=== PATIENT | female | born 1995 | race African-American/Black ===

== ENCOUNTER 2019-01-10 16:09 | Emergency (ER) | payer MEDICAID ==
[~2019-01-10] VITALS: Ht 160 cm; Wt 68.2 kg
[2019-01-10 16:20] VITALS: Ht 160 cm; Wt 68.2 kg
[2019-01-10 16:54] LABS: BASOPHILS 0.1 % (0-2); HEMATOCRIT 39.6 % (36.0-48.0); HEMOGLOBIN 14.1 g/dL (12-16); IMMATURE GRANULOCYTES 0.1 % (0-5); LYMPHOCYTES 21.2 % (15-50); MCH 29.3 pg (26.0-34.0); MCHC 35.6 g/dL (31.0-37.0); MCV 82.3 fL (80.0-100.0); MEAN PLATELET VOLUME 11.3 fL (7.4-10.4); MONOCYTES 7.5 % (2-11); NEUTROPHILS 70.1 % (40-80); PLATELET COUNT 169 10x3/uL (130-400); RBC 4.81 10x6/uL (4.00-5.40); RDW 13.3 % (11.5-14.5)
[2019-01-10 16:58] LABS: HCG URINE POSITIVE (NEGATIVE)
[2019-01-10 17:06] LABS: APPEARANCE HAZY (CLEAR); BILIRUBIN NEGATIVE (NEGATIVE); COLOR YELLOW (YELLOW); GLUCOSE NEGATIVE (NEGATIVE); KETONE NEGATIVE (NEGATIVE); NITRITE POSITIVE (NEGATIVE); PROTEIN NEGATIVE (NEGATIVE); SPECIFIC GRAVITY 1.015 (1.005-1.020); UROBILINOGEN NORMAL (NORMAL)
[2019-01-10 17:07] LABS: BACTERIA MANY /hpf (NONE SEEN); EPITHELIAL CELLS 0-5 /hpf (0-5); RED CELLS - URINE 0-5 /hpf (0-5)
[2019-01-10 17:08] LABS: MUCUS <1+ /lpf (NONE SEEN)
[2019-01-10 17:10] LABS: ALBUMIN 4.3 g/dL (3.4-5.0); ALKALINE PHOSPHATASE 81 U/L (46-116); ALT (SGPT) 21 U/L (10-68); BILIRUBIN - TOTAL 0.41 mg/dL (0.2-1.3); CALC OSMOLALITY 264 mosm/kg (275-300); CALCIUM 9.4 mg/dL (8.5-10.1); CARBON DIOXIDE 22.6 mmol/L (21.0-32.0); CHLORIDE - SERUM 99 mmol/L (98-107); CREATININE - SERUM 0.7 mg/dL (0.6-1.3); GLUCOSE 85 mg/dL (74-106); POTASSIUM - SERUM 3.5 mmol/L (3.5-5.1); PROTEIN - SERUM 8.4 g/dL (6.4-8.2); SODIUM 134 mmol/L (136-145); UREA NITROGEN 8 mg/dL (7-18); eGFR NON AFRICAN AMERICAN > 90 mL/min (90-120)
[2019-01-10] MEDS ORDERED: KEFLEX500 MG PO (19:05)
[2019-01-10] MEDS ORDERED: ZOFRAN ODT4 MG/UDTAB PO (19:05)
[2019-01-10 19:39] VITALS: BP 135/75
== END 2019-01-10 19:38 | disposition home or self-care (01) ==
LOC: D.ER 16:09
PROVIDERS: Emergency Medicine
DX: O23.40 Unspecified infection of urinary tract in pregnancy, unspecified trimester (principal); Z3A.00 Weeks of gestation of pregnancy not specified

== ENCOUNTER 2019-02-17 13:13 | Emergency (ER) | payer MEDICAID ==
[~2019-02-17] VITALS: Ht 160 cm; Wt 73.3 kg
[~2019-02-17 13:13] MED LIST: KEFLEX500 MG PO; ZOFRAN ODT4 MG/UDTAB PO
[2019-02-17 13:30] VITALS: Ht 160 cm; Wt 73.3 kg
[2019-02-17 14:02] LABS: BASOPHILS 0.1 % (0-2); HEMATOCRIT 34.8 % (36.0-48.0); HEMOGLOBIN 12.3 g/dL (12-16); IMMATURE GRANULOCYTES 0.1 % (0-5); LYMPHOCYTES 18.5 % (15-50); MCH 29.3 pg (26.0-34.0); MCHC 35.3 g/dL (31.0-37.0); MCV 82.9 fL (80.0-100.0); MEAN PLATELET VOLUME 11.1 fL (7.4-10.4); MONOCYTES 6.2 % (2-11); NEUTROPHILS 74.1 % (40-80); PLATELET COUNT 167 10x3/uL (130-400); RDW 13.8 % (11.5-14.5); WBC 8.4 10x3/uL (4.8-10.8)
[2019-02-17 14:16] LABS: ALBUMIN 3.7 g/dL (3.4-5.0); ALKALINE PHOSPHATASE 63 U/L (46-116); ALT (SGPT) 13 U/L (10-68); BILIRUBIN - TOTAL 0.26 mg/dL (0.2-1.3); CALC OSMOLALITY 267 mosm/kg (275-300); CARBON DIOXIDE 24.9 mmol/L (21.0-32.0); CHLORIDE - SERUM 103 mmol/L (98-107); CREATININE - SERUM 0.6 mg/dL (0.6-1.3); GLUCOSE 77 mg/dL (74-106); POTASSIUM - SERUM 4.2 mmol/L (3.5-5.1); PROTEIN - SERUM 7.5 g/dL (6.4-8.2); SODIUM 136 mmol/L (136-145); UREA NITROGEN 5 mg/dL (7-18); eGFR NON AFRICAN AMERICAN > 90 mL/min (90-120)
[2019-02-17 14:21] LABS: AMYLASE - SERUM 65 U/L (25-115); LIPASE 125 U/L (73-393); TROPONIN-I < 0.017 ng/mL (0.000-0.060)
[2019-02-17 14:48] LABS: APPEARANCE HAZY (CLEAR); BILIRUBIN NEGATIVE (NEGATIVE); COLOR YELLOW (YELLOW); GLUCOSE NEGATIVE (NEGATIVE); KETONE NEGATIVE (NEGATIVE); NITRITE NEGATIVE (NEGATIVE); PROTEIN NEGATIVE (NEGATIVE); UROBILINOGEN NORMAL (NORMAL)
[2019-02-17 14:49] LABS: BACTERIA FEW /hpf (NONE SEEN); EPITHELIAL CELLS 0-5 /hpf (0-5); RED CELLS - URINE OCC /hpf (0-5); WHITE CELLS - URINE 0-5 /hpf (0-5)
[2019-02-17 17:49] VITALS: BP 115/71
== END 2019-02-17 17:54 | disposition home or self-care (01) ==
LOC: D.ER 13:13
PROVIDERS: Family Medicine
DX: O26.891 Other specified pregnancy related conditions, first trimester (principal); Z3A.11 11 weeks gestation of pregnancy; R10.31 Right lower quadrant pain

== ENCOUNTER 2019-05-11 19:23 | Outpatient (CLI) | payer MEDICAID ==
[2019-02-17 13:30] VITALS: BMI 28.6
--- NOTE | 2019-05-11 20:12 | NUR ---
DOCTOR TREVIZO NOTIFIED AND REVIEWED PT BEHAVIOR AND ASSESSMENT RESULTS. PT IS A LOW RISK PER DOCTOR TREVIZO. DOCTOR TREVIZO STATED TO GIVE RESOURCES TO PT AT TIME OF DISCGARGE. NO FURTHER ORDERS AT THIS TIME. RESOURCES REVIEWED WITH PT AND SHE VERBALIZED UNDERSTANDING.
[2019-05-11 20:57] LABS: APPEARANCE CLEAR (CLEAR); BILIRUBIN NEGATIVE (NEGATIVE); COLOR YELLOW (YELLOW); GLUCOSE NEGATIVE (NEGATIVE); KETONE NEGATIVE (NEGATIVE); NITRITE NEGATIVE (NEGATIVE); PROTEIN NEGATIVE (NEGATIVE); UROBILINOGEN NORMAL (NORMAL)
[2019-05-11 20:59] LABS: BACTERIA FEW /hpf (NEGATIVE); EPITHELIAL CELLS 0-5 /hpf (0-5); RED CELLS - URINE OCC /hpf (0-5); WHITE CELLS - URINE 0-5 /hpf (NEGATIVE)
== END 2019-05-11 23:41 | disposition home or self-care (01) ==
LOC: D.LDO 19:23 → D.LD 21:35 → D.LDO 23:41
PROVIDERS: ATTEND Student in an Organized Health Care Education/Training Program
DX: O26.899 Other specified pregnancy related conditions, unspecified trimester (principal); Z3A.00 Weeks of gestation of pregnancy not specified; R10.9 Unspecified abdominal pain; R45.851 Suicidal ideations

== ENCOUNTER → 2019-06-23 11:06 | Outpatient (CLI) | payer MEDICAID ==
[2019-02-17 13:30] VITALS: BMI 28.6
[2019-06-23 12:13] LABS: APPEARANCE HAZY (CLEAR); BACTERIA MODERATE /hpf (NEGATIVE); BILIRUBIN NEGATIVE (NEGATIVE); COLOR STRAW (YELLOW); EPITHELIAL CELLS 0-5 /hpf (0-5); GLUCOSE 100 mg/dL (NEGATIVE); KETONE SMALL mg/dL (NEGATIVE); MUCUS <1+ /lpf (NONE SEEN); NITRITE NEGATIVE (NEGATIVE); PROTEIN NEGATIVE (NEGATIVE); RED CELLS - URINE RARE /hpf (0-5); SPECIFIC GRAVITY 1.015 (1.005-1.020); UROBILINOGEN NORMAL (NORMAL)
== END | disposition home or self-care (01) ==
LOC: D.LDO 11:06
PROVIDERS: ATTEND Obstetrics & Gynecology
DX: O26.93 Pregnancy related conditions, unspecified, third trimester (principal); Z3A.29 29 weeks gestation of pregnancy; R10.30 Lower abdominal pain, unspecified; M54.9 Dorsalgia, unspecified

== ENCOUNTER → 2019-08-03 15:27 | Outpatient (CLI) | payer OTHER ==
[2019-02-17 13:30] VITALS: BMI 28.6
[2019-08-03 16:44] LABS: BASOPHILS 0.1 % (0-2); EOSINOPHILS 0.8 % (0-7); HEMATOCRIT 31.4 % (36.0-48.0); HEMOGLOBIN 10.1 g/dL (12-16); IMMATURE GRANULOCYTES 0.6 % (0-5); LYMPHOCYTES 18.8 % (15-50); MCH 25.4 pg (26.0-34.0); MCHC 32.2 g/dL (31.0-37.0); MCV 79.1 fL (80.0-100.0); MEAN PLATELET VOLUME 11.1 fL (7.4-10.4); NEUTROPHILS 69.7 % (40-80); PLATELET COUNT 186 10x3/uL (130-400); RBC 3.97 10x6/uL (4.00-5.40); RDW 14.1 % (11.5-14.5); WBC 7.8 10x3/uL (4.8-10.8)
[2019-08-03 16:57] LABS: CALC OSMOLALITY 276 mosm/kg (275-300); CALCIUM 8.9 mg/dL (8.5-10.1); CHLORIDE - SERUM 105 mmol/L (98-107); CREATININE - SERUM 0.7 mg/dL (0.6-1.3); GLUCOSE 97 mg/dL (74-106); POTASSIUM - SERUM 4.2 mmol/L (3.5-5.1); SODIUM 140 mmol/L (136-145); UREA NITROGEN 8 mg/dL (7-18); eGFR NON AFRICAN AMERICAN > 90 mL/min (90-120)
[2019-08-03 17:03] LABS: ALBUMIN 2.6 g/dL (3.4-5.0); ALKALINE PHOSPHATASE 187 U/L (46-116); ALT (SGPT) 17 U/L (10-68); BILIRUBIN - DIRECT 0.04 mg/dL (0.00-0.30); BILIRUBIN - INDIRECT 0.12 mg/dL (0.00-1.00); BILIRUBIN - TOTAL 0.16 mg/dL (0.2-1.3); PROTEIN - SERUM 6.1 g/dL (6.4-8.2); URIC ACID 3.6 mg/dL (2.6-7.2)
== END | disposition home or self-care (01) ==
LOC: D.LDO 15:27
PROVIDERS: ATTEND Student in an Organized Health Care Education/Training Program
DX: O26.893 Other specified pregnancy related conditions, third trimester (principal); Z3A.35 35 weeks gestation of pregnancy; M25.473 Effusion, unspecified ankle

== ENCOUNTER → 2019-08-08 12:09 | Outpatient (CLI) | payer OTHER ==
[2019-02-17 13:30] VITALS: BMI 28.6
[2019-08-08 14:37] LABS: APPEARANCE HAZY (CLEAR); COLOR YELLOW (YELLOW); PROTEIN 2+ mg/dL (NEGATIVE); SPECIFIC GRAVITY 1.015 (1.005-1.020)
[2019-08-08 14:38] LABS: AMORPHOUS SEDIMENT <1+ /lpf (NONE SEEN); BACTERIA MODERATE /hpf (NEGATIVE); EPITHELIAL CELLS 0-5 /hpf (0-5); GRANULAR CAST NONE SEEN /lpf (NONE SEEN); HYALINE CAST NONE SEEN /lpf (NONE SEEN); MUCUS <1+ /lpf (NONE SEEN); RED CELL CAST NONE SEEN /lpf (NONE SEEN); RED CELLS - URINE NONE SEEN /hpf (0-5); SPERMATOZOA NONE SEEN /hpf (NONE SEEN); WAXY CAST NONE SEEN /lpf (NONE SEEN); YEAST NONE SEEN /hpf (NONE SEEN)
[2019-08-08 16:45] LABS: BILIRUBIN NEGATIVE (NEGATIVE); GLUCOSE NEGATIVE (NEGATIVE); KETONE NEGATIVE (NEGATIVE); NITRITE NEGATIVE (NEGATIVE); UROBILINOGEN NORMAL (NORMAL)
== END | disposition home or self-care (01) ==
LOC: D.LDO 12:09
PROVIDERS: ATTEND Obstetrics & Gynecology
DX: O36.8190 Decreased fetal movements, unspecified trimester, not applicable or unspecified (principal); Z3A.00 Weeks of gestation of pregnancy not specified

== ENCOUNTER 2019-08-09 15:11 | Outpatient (CLI) | payer OTHER ==
[2019-02-17 13:30] VITALS: BMI 28.6
--- NOTE | 2019-08-09 17:02 | NUR ---
According to the suicide assessment screen the patient does not require a 1:1 suicide observation. Provided a suicide resource flyer.
[2019-08-09 17:07] LABS: APPEARANCE HAZY (CLEAR); BACTERIA MODERATE /hpf (NEGATIVE); BILIRUBIN NEGATIVE (NEGATIVE); COLOR YELLOW (YELLOW); EPITHELIAL CELLS OCC /hpf (0-5); GLUCOSE NEGATIVE (NEGATIVE); KETONE NEGATIVE (NEGATIVE); NITRITE NEGATIVE (NEGATIVE); PROTEIN TRACE mg/dL (NEGATIVE); RED CELLS - URINE 0-5 /hpf (0-5); SPECIFIC GRAVITY 1.015 (1.005-1.020); UROBILINOGEN NORMAL (NORMAL)
[2019-08-10 06:22] LABS: BASOPHILS 0.2 % (0-2); EOSINOPHILS 1.2 % (0-7); HEMATOCRIT 32.5 % (36.0-48.0); HEMOGLOBIN 10.3 g/dL (12-16); IMMATURE GRANULOCYTES 0.5 % (0-5); LYMPHOCYTES 18.6 % (15-50); MCH 25.1 pg (26.0-34.0); MCHC 31.7 g/dL (31.0-37.0); MCV 79.1 fL (80.0-100.0); MEAN PLATELET VOLUME 11.3 fL (7.4-10.4); NEUTROPHILS 70.5 % (40-80); PLATELET COUNT 199 10x3/uL (130-400); RBC 4.11 10x6/uL (4.00-5.40); RDW 14.2 % (11.5-14.5); WBC 6.5 10x3/uL (4.8-10.8)
[2019-08-10 06:45] LABS: ALBUMIN 2.4 g/dL (3.4-5.0); ALKALINE PHOSPHATASE 200 U/L (46-116); ALT (SGPT) 16 U/L (10-68); BILIRUBIN - TOTAL 0.31 mg/dL (0.2-1.3); CALC OSMOLALITY 270 mosm/kg (275-300); CALCIUM 8.7 mg/dL (8.5-10.1); CARBON DIOXIDE 20.1 mmol/L (21.0-32.0); CHLORIDE - SERUM 106 mmol/L (98-107); CREATININE - SERUM 0.8 mg/dL (0.6-1.3); GLUCOSE 77 mg/dL (74-106); POTASSIUM - SERUM 4.3 mmol/L (3.5-5.1); PROTEIN - SERUM 5.9 g/dL (6.4-8.2); SODIUM 137 mmol/L (136-145); UREA NITROGEN 6 mg/dL (7-18); eGFR NON AFRICAN AMERICAN > 90 mL/min (90-120)
[2019-08-10 20:05] LABS: PROTEIN - URINE 9.3 mg/dL (0.0-11.9)
== END 2019-08-10 21:02 | disposition home or self-care (01) ==
LOC: D.LDO 15:11 → D.LD 19:30 → D.LDO 08-10 21:02
PROVIDERS: ATTEND Obstetrics & Gynecology
DX: O26.893 Other specified pregnancy related conditions, third trimester (principal); Z3A.36 36 weeks gestation of pregnancy; R10.9 Unspecified abdominal pain

== ENCOUNTER 2019-08-15 09:21 | Inpatient (IN) | payer OTHER ==
[~2019-08-15] VITALS: Ht 162.6 cm; Wt 97.5 kg
[2019-08-15 09:56] LABS: APPEARANCE CLEAR (CLEAR); BILIRUBIN NEGATIVE (NEGATIVE); COLOR STRAW (YELLOW); GLUCOSE NEGATIVE (NEGATIVE); KETONE NEGATIVE (NEGATIVE); NITRITE NEGATIVE (NEGATIVE); PROTEIN NEGATIVE (NEGATIVE); SPECIFIC GRAVITY 1.015 (1.005-1.020); UROBILINOGEN NORMAL (NORMAL)
[2019-08-15 10:24] LABS: BASOPHILS 0.1 % (0-2); HEMATOCRIT 34.7 % (36.0-48.0); HEMOGLOBIN 10.9 g/dL (12-16); IMMATURE GRANULOCYTES 0.6 % (0-5); LYMPHOCYTES 17.4 % (15-50); MCH 24.5 pg (26.0-34.0); MCHC 31.4 g/dL (31.0-37.0); MCV 78.2 fL (80.0-100.0); MEAN PLATELET VOLUME 11.7 fL (7.4-10.4); MONOCYTES 8.2 % (2-11); NEUTROPHILS 72.7 % (40-80); PLATELET COUNT 170 10x3/uL (130-400); RBC 4.44 10x6/uL (4.00-5.40); RDW 14.2 % (11.5-14.5); WBC 7.2 10x3/uL (4.8-10.8)
[2019-08-15 10:37] LABS: CALC OSMOLALITY 275 mosm/kg (275-300); CALCIUM 8.6 mg/dL (8.5-10.1); CARBON DIOXIDE 24.4 mmol/L (21.0-32.0); CHLORIDE - SERUM 106 mmol/L (98-107); CREATININE - SERUM 0.8 mg/dL (0.6-1.3); GLUCOSE 99 mg/dL (74-106); POTASSIUM - SERUM 4.3 mmol/L (3.5-5.1); SODIUM 139 mmol/L (136-145); UREA NITROGEN 7 mg/dL (7-18); eGFR NON AFRICAN AMERICAN > 90 mL/min (90-120)
[2019-08-15 10:43] LABS: ALBUMIN 2.7 g/dL (3.4-5.0); ALKALINE PHOSPHATASE 224 U/L (46-116); ALT (SGPT) 24 U/L (10-68); BILIRUBIN - INDIRECT 0.14 mg/dL (0.00-1.00); BILIRUBIN - TOTAL 0.18 mg/dL (0.2-1.3); URIC ACID 3.5 mg/dL (2.6-7.2)
[2019-08-15 10:47] LABS: BILIRUBIN - DIRECT 0.04 mg/dL (0.00-0.30)
[2019-08-16 11:31] LABS: PROTEIN - URINE 18.8 mg/dL (0.0-11.9)
[2019-08-16 13:56] LABS: HEMATOCRIT 36.3 % (36.0-48.0); HEMOGLOBIN 11.3 g/dL (12-16); MCH 24.5 pg (26.0-34.0); MCHC 31.1 g/dL (31.0-37.0); MCV 78.7 fL (80.0-100.0); MEAN PLATELET VOLUME 11.2 fL (7.4-10.4); RBC 4.61 10x6/uL (4.00-5.40); RDW 14.8 % (11.5-14.5); WBC 6.7 10x3/uL (4.8-10.8)
[2019-08-16] MEDS ORDERED: BUTALB-APAP-CA1 EACH PO (14:15)
[2019-08-16] MEDS ORDERED: ZOFRAN4 MG PO (14:15)
[2019-08-16] MEDS ORDERED: PRENAVITE1 TAB PO (14:16)
[2019-08-16] MEDS ORDERED: CYCLOBENZAPRINE5 MG PO (14:16)
[2019-08-16 14:28] VITALS: BP 138/67; Ht 162.6 cm; Wt 97.5 kg
--- NOTE | 2019-08-16 14:54 | NUR ---
According to the suicide assessment the patient scored low and she will not require 1:1 observation. Provided the patient with the suicide resource flyer.
[2019-08-16 21:04] VITALS: BP 123/70
--- NOTE | 2019-08-16 21:06 | NUR ---
PT RECEIVED TO ROOM 1219 VIA BED. BEDSIDE REPORT RECEIVED FROM EDDIE DE LA PAZ RN. PT IN STABLE CONDITION. VSS.
--- NOTE | 2019-08-16 21:18 | NUR ---
DILAUDID DOORPERSON OR LUGGAGE PORTER STARTED PER MD ORDERS. SETTINGS VERIFIED WITH NERIS ROBLES. PT INSTRUCTED ON USE OF DOORPERSON OR LUGGAGE PORTER BUTTON. VERBALIZED UNDERSTANDING.
--- NOTE | 2019-08-16 21:20 | NUR ---
PT RESTING IN BED. ASSESSMENT COMPLETE PER FLOWSHEET. VSS. BBS CLEAR. ABDOMEN SOFT. LOW TRANSVERSE ABDOMINAL INCISION C/D/I WITH DERMABOND. HYPOACTIVE BS X4 QUADRANTS. FUNDUS FIRM AT UMBILICUS. MODERATE AMOUNT OF LOCHIA NOTED. FC IN PLACE AND DRAINING TO GRAVITY WITH CLEAR YELLOW URINE. FC SECURED WITH CATH SECURE TO PT'S LEG. SCD ON AND WORKING PROPERLY. EDEMA NOTED TO BLE OF 1+. IV TO RIGHT WRIST INFUSING NS WITH 20 UNITS PIT WITHOUT REDNESS OR TENDERNESS TO SITE. POC DISCUSSED. QUESTIONS ANSWERED. BED IN LOW POSITION. SR UP X2. CALL LIGHT AND HAND TRUCKER BUTTON WITHIN PTS REACH. INSTRUCTED PT TO NOTIFY NURSE WITH ANY PROBLEMS, NEEDS, OR CONCERNS. VERBALIZED UNDERSTANDING.
--- NOTE | 2019-08-16 21:45 | NUR ---
KAUFMAN CARE AND PERICARE DONE. PERIPADS CHANGED. MODERATE AMOUNT OF LOCHIA NOTED. ICE PACK PLACED TO INCISIONAL SITE. FC EMPTIED. PT DENIES ANY NEEDS AT THIS TIME. INSTRUCTED PT TO NOTIFY NURSE WITH ANY PROBLEMS, NEEDS, OR CONCERNS. VERBALIZED UNDERSTANDING. BED IN LOW POSITION. SR UP X2. CALL LIGHT AND VALVE ASSEMBLER BUTTON WITHIN PTS REACH.
[2019-08-16 22:40] VITALS: BP 124/69
--- NOTE | 2019-08-16 22:40 | NUR ---
PT RESTING IN BED HOLDING . VSS. FAMILY AT BEDSIDE. FEDERICO SODA WITH ICE PROVIDED PER PT REQUEST. NO OTHER REQUEST MADE. INSTRUCTED PT TO NOTIFY NURSE WITH ANY PROBLEMS, NEEDS, OR CONCERNS. VERBALIZED UNDERSTANDING. BED IN LOW POSITION. SR UP X2. CALL LIGHT AND CLOTH NAPPING SUPERVISOR BUTTON WITHIN PTS REACH.
[2019-08-16 22:55] VITALS: BP 124/69
[2019-08-16 23:10] VITALS: BP 116/76
--- NOTE | 2019-08-16 23:15 | NUR ---
PT RESTING IN BED. IN ROOM IN OPEN CRIB WITH NB NURSE. PT DENIES ANY COMPLAINTS. PERICARE DONE. PERIPADS AND UNDERPADS CHANGED. HEAVY AMOUNT OF LOCHIA NOTED ON PERIPADS. WILL REASSESS PERIPADS IN 1 HOUR. FUNDUS FIRM AT UMBILICUS. LOW TRANSVERSE ABDOMINAL INCISION C/D/I WITH DERMABOND. ICE PACK PLACED TO INCISIONAL SITE. FC TO GRAVITY DRAINING CLEAR YELLOW URINE. IV INFUSING NS WITH 20 UNITS PIT. NO REDNESS OR TENDERNESS NOTED TO SITE. NO REQUEST MADE. INSTRUCTED PT TO NOTIFY NURSE WITH ANY PROBLEMS, NEEDS, OR CONCERNS. VERBALIZED UDNERSTANDING. BED IN LOW POSITION. SR UP X2. CALL LIGHT AND MORTGAGE LENDER BUTTON WITHIN PTS REACH. PT'S MOTHER REMAINS AT PT'S BEDSIDE.
[2019-08-16 23:40] VITALS: BP 118/57
--- NOTE | 2019-08-16 23:40 | NUR ---
PT RESTING IN BED HOLDING INFANT. NO DISTRESS NOTED. PT'S MOTHER AT BEDSIDE. PT DENIES ANY COMPLAINTSOR NEEDS AT THIS TIME. INSTRUCTED PT TO NOTIFY NURSE WITH ANY PROBLEMS, NEEDS, OR CONCERNS. VERBALIZED UNDERSTANDING. BED IN LOW POSITION. SR UP X2. CALL LIGHT AND LIBRARY CIRCULATION CLERK BUTTON WITHIN PTS REACH.
--- NOTE | 2019-08-17 | NUR ---
PERIPADS WEIGHED. PERIPADS X2 FROM [id number] WEIGHED A TOTAL OF 50MLS. PERIPAD X1 FROM WEIGHED A TOTAL OF 19MLS.
[2019-08-17 00:10] VITALS: BP 109/57
--- NOTE | 2019-08-17 00:15 | NUR ---
PT RESTING IN BED. PERIPADS CHECKED AND CHANGED. MODERATE AMOUNT OF LOCHIA NOTED. PERIPAD NOT SATURAED. FUNDUS FIRM AT UMBILICUS. PT'S MOTHER AT BEDSIDE AND REPORTS THAT SHE HAS BEEN PUSHING PT'S STEREO EQUIPMENT SALESPERSON BUTTON FOR HER. BOTH PT AND HER MOTHER WERE INSTRUCTED THAT THE STEREO EQUIPMENT SALESPERSON IS PATIENT CONTROLLED AND THE PT SHOULD BE THE ONLY ONE PUSHING THE STEREO EQUIPMENT SALESPERSON BUTTON. BOTH VERBALIZED UNDERSTANDING. BED IN LOW POSITION. SR UP X2. CALL LIGHT WITHIN PTS REACH.
--- NOTE | 2019-08-17 00:30 | NUR ---
PT RESTING IN BED. PT C/O INCISIONAL PAIN AND A SHARP THROBBING HEADACHE. TORADOL 30MG GIVEN SIVP. INSTRUCTED PT TO NOTIFY NURSE IF MEDICATION NOT EFFECTIVE OR WITH ANY OTHER PROBLEMS, NEEDS, OR CONCERNS. VERBALIZED UNDERSTANDING. BED IN LOW POSITION. SR UP X2. CALL LIGHT AND NEUROLOGIST WITHIN PTS REACH.
--- NOTE | 2019-08-17 01:05 | NUR ---
PT RESTING IN BED. FAMILY IN ROOM AT BEDSIDE. PT REPORTS HER PAIN IS NOW 2/10. PT DENIES ANY COMPLAINTS OR NEEDS. INSTRUCTED PT TO NOTIFY NURSE WITH ANY PROBLEMS, NEEDS, OR CONCERNS. VERBALIZED UNDERSTANDING. BED IN LOW POSITION. SR UP X2. CALL LIGHT AND GUM SCORING MACHINE OPERATOR WITHIN PTS REACH.
--- NOTE | 2019-08-17 02:59 | NUR ---
PT RESTING IN BED. PT DENIES ANY COMPLAINTS AT THIS TIME. PERICARE DONE AND PERIPADS CHANGED. MODERATE AMOUNT OF LOCHIA NOTED. FUNDUS FIRM AT UMBILICUS. FRESH ICE WATER, CHICKEN BROTH AND JELL-O PROVIDED. PT INSTRUCTED TO NOTIFY NURSE WITH ANY PROBLEMS, NEEDS, OR CONCERNS. VERBALIZED UNDERSTANDING. BED IN LOW POSITION. SR UP X2. CALL LIGHT AND WOOD PANEL INSPECTOR BUTTON WITHIN PTS REACH.
[2019-08-17 03:30] VITALS: BP 118/51
--- NOTE | 2019-08-17 03:30 | NUR ---
PT RESTING IN BED WITH EYES CLOSED, BUT EASILY AWAKENED FOR VS. PT DENIES ANY COMPLAINTS AT THIS TIME. VSS. PERICARE DONE AND PERIPADS CHANGED. SMALL AMOUNT OF LOCHIA NOTED ON PERIPADS. FUNDUS FIRM AT UMBILICUS. LOW TRANSVERSE ABDOMINAL INCISION C/D/I WITH DREMABOND. FC TO GRAVITY AND DRAINING CONCENTRATED THONG URINE. FC SECURED TO PTS LEG WITH CATH SECURE. SCDS REMAIN ON BLE AND WORKING PROPERLY. IS DONE 1OX. NEW BAG OF NS WITH 20 UNITS OF PIT HUNG AND INFUSING TO IV TO RIGHT WRIST WITHOUT REDNESS OR TENDERNESS. NO REQUEST MADE. INSTRUCTED PT TO NOTIFY NURSE WITH ANY PROBLEMS, NEEDS, OR CONCERNS. VERBALIZED UNDERSTANDING. BED IN LOW POSITION. SR UP X2. CALL LIGHT AND DREDGE PUMPER BUTTON WITHIN PTS REACH.
--- NOTE | 2019-08-17 05:00 | NUR ---
CEREAL CHEMIST TUBING CHANGED DT CONNECTOR SITE LEAKING. WITNESSED BY NERIS MARR.
[2019-08-17 06:04] LABS: BASOPHILS 0.1 % (0-2); EOSINOPHILS 0.4 % (0-7); HEMATOCRIT 32.4 % (36.0-48.0); HEMOGLOBIN 10.1 g/dL (12-16); IMMATURE GRANULOCYTES 0.2 % (0-5); LYMPHOCYTES 13.1 % (15-50); MCH 24.6 pg (26.0-34.0); MCHC 31.2 g/dL (31.0-37.0); MCV 78.8 fL (80.0-100.0); MEAN PLATELET VOLUME 11.1 fL (7.4-10.4); MONOCYTES 8.7 % (2-11); NEUTROPHILS 77.5 % (40-80); PLATELET COUNT 158 10x3/uL (130-400); RBC 4.11 10x6/uL (4.00-5.40); RDW 14.6 % (11.5-14.5)
--- NOTE | 2019-08-17 06:15 | NUR ---
PT RESTING IN BED. PERICARE DONE AND PERIPADS CHANGED. SMALL AMOUNT OF LOCHIA NOTED. FUNDUS FIRM AT UMBILICUS. DILAUDID DIETETICS DIRECTOR CLEARED WITH 15MG USED. TORADOL 30MG GIVEN SIVP FOR C/O INCISIONAL PAIN AND HEADACHE OF 7/10. IV SITE TO RIGHT WRIST WITHOUT REDNESS OR TENDERNESS. NO OTHER REQUEST MADE. S/O AT BEDSIDE SLEEPING IN CHAIR. INSTRUCTED PT TO NOTIFY NURSE WITH ANY PROBLEMS, NEEDS, OR CONCERNS. VERBALIZED UNDERSTANDING. BED IN LOW POSITION. SR UP X2. CALL LIGHT AND DIETETICS DIRECTOR BUTTON WITHIN PTS REACH.
[2019-08-17 06:45] LABS: WBC 10.2 10x3/uL (4.8-10.8)
[2019-08-17 07:30] VITALS: BP 118/74
--- NOTE | 2019-08-17 07:30 | NUR ---
PT A&A IN STABLE CONDITION W/ NO C/O AT THIS TIME. PT SITTING UP DRINKING BROTH.
--- NOTE | 2019-08-17 07:30 | NUR ---
PT'S FUNDUS FIRM AT U-1 MIDLINE & BLEEDING SCANT.
--- NOTE | 2019-08-17 07:40 | NUR ---
DR. STEVENSON IN ROOM W/ PT AT THIS TIME.
--- NOTE | 2019-08-17 07:55 | NUR ---
pt iv saline locked at this time, shine cath removed at this time. pt asssited up to the rr. pt w/ steady gait. pt unable to void at this time.
--- NOTE | 2019-08-17 09:02 | NUR ---
pt c/o meyer. pt given pain meds see emar. pt w/ no c/o at this time.
--- NOTE | 2019-08-17 09:15 | NUR ---
pedi. in room at this time.
--- NOTE | 2019-08-17 09:50 | NUR ---
pt states meyer is much better at this time see emar.
--- NOTE | 2019-08-17 10:00 | NUR ---
pt asssisted up to rr again at this time. pt able to void 150ml. pt walked around to sink & back to bed. fundus remains firm at u-1 midline, bleeding small.
--- NOTE | 2019-08-17 11:00 | NUR ---
pt a&a holding . pt w/ no c/o at this time.
--- NOTE | 2019-08-17 11:14 | NUR ---
anesth. in room w/ pt at this time.
[2019-08-17 12:00] VITALS: BP 123/71
--- NOTE | 2019-08-17 12:00 | NUR ---
pt a&a w/ no c/o at this time. pt states just finished using rr & able to void w/o difficulty. pt's mom in room w/ pt & .
[2019-08-17 12:11] LABS: BASOPHILS 0 % (0-2); EOSINOPHILS 0.7 % (0-7); HEMATOCRIT 29.5 % (36.0-48.0); HEMOGLOBIN 9.3 g/dL (12-16); IMMATURE GRANULOCYTES 0.3 % (0-5); LYMPHOCYTES 10.9 % (15-50); MCH 24.8 pg (26.0-34.0); MCHC 31.5 g/dL (31.0-37.0); MCV 78.7 fL (80.0-100.0); MONOCYTES 10.4 % (2-11); NEUTROPHILS 77.7 % (40-80); PLATELET COUNT 132 10x3/uL (130-400); RBC 3.75 10x6/uL (4.00-5.40); RDW 14.7 % (11.5-14.5); WBC 7.7 10x3/uL (4.8-10.8)
--- NOTE | 2019-08-17 12:20 | NUR ---
dr. mederos notified of pt's noon v/s & labs. dr. mederos gave verbal order to call if pulse greater than 120 or any other s/s. readback.
--- NOTE | 2019-08-17 12:45 | NUR ---
REG. LUNCH TRAY BROUGHT TO PT BY DIETARY AT THIS TIME.
--- NOTE | 2019-08-17 13:35 | NUR ---
PT C/O PAIN SEE EMAR FOR PAIN MEDS GIVEN. PT STATES MORE ABD. PAIN W/ MOVEMENT. PT SITTING UP IN CHAIR. PT'S MOM & FOB IN ROOM. PT STATES SHE IS GOING TO TAKE A SHOWER. ADVISED TO CALL RN IF ASSISTANCE NEEDED. IV COVERED & SHOWER CHAIR PLACED IN SHOWER FOR PT.
--- NOTE | 2019-08-17 14:05 | NUR ---
NURSERY NURSE IN ROOM W/ PT & INFANT AT THIS TIME.
--- NOTE | 2019-08-17 14:20 | NUR ---
PT BACK IN BED A&A HOLDING SKIN TO SKIN. PT ADVISED TO CALL NURSE FOR NEEDS, PT VOICED UNDERSTANDING. PT'S MOM REMAINS IN ROOM W/ PT.
--- NOTE | 2019-08-17 14:39 | NUR ---
PT A&A HOLDING . PT STATES WHEN GETTING IN BED FROM THE CHAIR BED ROLLED & PT FELT IF SHE WAS FALLING. L.OBRIANT NURSE DIRECTOR FEDERAL NOTIFIED.
--- NOTE | 2019-08-17 14:59 | NUR ---
PT RESTING W/ EYES CLOSED AT THIS TIME.
--- NOTE | 2019-08-17 15:35 | NUR ---
PT TO ROOM 1257 AMBULATORY WITHOUT ASSIST, SLOW BUT STEADY GAIT. PT DENIES FEELING DIZZY OR WEAK. PT MOTHER, THIS RN, AND NERIS MULLIGAN WALK ALONGSIDE PT TO NEW ROOM. PT STATES SHE WANTS TO GO AHEAD AND SHOWER WHILE SHE IS UP. IV ALREADY WRAPPED AND COVERED BY NERIS MULLIGAN. PT TO SHOWER, INSTRUCTED ON WASHING AND DRYING INCISION. UNDERSTANDING VERBALIZED. PT'S MOTHER IN ROOM WITH HER TO ASSIST IF NEEDED. PT AND MOTHER INSTRUCTED TO PULL CORD IN BR IF PT FEELS DIZZY OR IF IN ANY NEED OF ASSISTANCE. UNDERSTANDING VERBALIZED. WILL CONT TO MONITOR.
--- NOTE | 2019-08-17 15:40 | NUR ---
PT MOVED TO ROOM 1257. PT STATES PAINFUL TO WALK. ADVISED PT WALKING WILL GET BETTER DAY BY DAY TO TAKE IT SLOW. PT VOICED UNDERSTNADING.
--- NOTE | 2019-08-17 16:00 | NUR ---
THIS RN TO ROOM PER REQUEST BY PT MANAGER PUBLISHING LIGHT. PT STATES SHE PASSED A BLOOD CLOT WHEN VOIDING, LEFT IN TOILET TO SHOW NURSE. APPROX HALF-DOLLAR SIZED BLODD CLOT NOTED IN TOILET WITH SMALL RUBRA LOCHIA. PT . FF, ML, U/1. PT REASSURED, INSTRUCTED ON S/S TO REPORT REGARDING FURTHER CLOTS AND LOCHIA FLOW SATURATING 1 PAD PER HOUR. UNDERSTANDING VERBALIZED. SRUx2, CL IN REACH. PT MOTHER AT BEDSIDE. WILL CONT TO MONITOR.
--- NOTE | 2019-08-17 16:45 | NUR ---
THIS RN TO ROOM FOR PT CHECK. PT SITTING UP IN BED, EATING DINNER. PT MOTHER ON BEDSIDE COUCH HOLDING INFANT. PT DENIES ANY NEEDS AT THIS TIME, SMILING, PLEASANT. MOTHER STATES SHE REFILLED ICE PACK FOR ABD INCISION. SRUx2, CL IN REACH. WILL CONT TO MONITOR.
[2019-08-17 19:30] VITALS: BP 115/77
--- NOTE | 2019-08-17 19:30 | NUR ---
SHIFT ASSESSMENT COMPLETED. SEE FLOWSHEET. SL REMAINS TO RT WRIST AT THIS TIME. NO SIGNS OF ERYTHEMA OR EDEMA NOTED TO SITE. PT REPORTS SHE HAS NOT PASSED GAS TODAY AND ABD APPEARS SLIGHTLY DISTENDED. ADVISED PT TO AMBULATE TO ALLEVIATE GAS. UNDERSTANDING VERBALIZED. VSS. INCISION C/D/I WITHOUT ERYTHEMA OR EDEMA NOTED TO SITE. PT REPORTS SMALL LOCHIA RUBRA WHEN VOIDING, NO CLOTS NOTED. PAIN RATED 3/10 AND TOLERABLE AT THIS TIME. INFANT UP IN ARMS FOR FEEDING AT THIS TIME. NO FURTHER NEEDS VOICED. WILL CONTINUE TO MONITOR PRN. BED LOW, WHEELS LOCKED, CALL LIGHT AND PHONE WITHIN REACH, SIDE RAILS UP X2.
--- NOTE | 2019-08-17 20:30 | NUR ---
RN TO BEDSIDE TO ASSESS INFANT IV. PT DENIES PAIN OR NEEDS. FOB AT BEDSIDE. WILL CONTINUE TO MONITOR PRN.
--- NOTE | 2019-08-17 21:32 | NUR ---
PT SITTING UP IN BED WITH UP IN ARMS BONDING. DENIES PAIN OR NEEDS AT THIS TIME.
--- NOTE | 2019-08-17 22:45 | NUR ---
UPON ENTERING ROOM WITH INFANT, MOM IN BATHROOM REPORTING PAIN 10/10. PAIN MEDICATION OFFERED AND PT REQUESTS NORCO. DENIES FURTHER NEEDS. WILL RETURN WITH PAIN MEDICATION. FOB REMAINS AT BEDSIDE FOR SUPPORT.
--- NOTE | 2019-08-17 22:55 | NUR ---
PT MEDICATED WITH NORCO FOR PAIN LEVEL OF 10. L NERIS AUSTIN
--- NOTE | 2019-08-17 23:30 | NUR ---
RN TO BEDSIDE. PT REPORTS PAIN "MUCH BETTER" AT THIS TIME. DENIES NEEDS. WILL CONT. TO MONITOR PRN.
--- NOTE | 2019-08-18 00:30 | NUR ---
RN TO BEDSIDE. PT WITH INFANT UP IN ARMS, SKIN TO SKIN. DENIES PAIN OR NEEDS. WILL CONTINUE TO MONITOR PRN.
--- NOTE | 2019-08-18 01:20 | NUR ---
MOTRIN GIVEN PER PT REQUEST FOR PAIN RATED 8/10 AT THIS TIME. NO FURTHER NEEDS VOICED. TRANSPORTED TO [facility] VIA OPEN CRIB AT THIS TIME.
--- NOTE | 2019-08-18 02:25 | NUR ---
INFANT TRANSPORTED VIA OPEN CRIB TO PT'S ROOM. BANDS VERIFIED X2. PT AWAKENED UPON NURSE ARRIVAL TO ROOM AND INQUIRED ABOUT INFANT FEEDING. DISCUSSED WORK REQUIRED TO ENCOURAGE TO FEED. NO FURTHER QUESTIONS AT THIS TIME. WILL CONTINUE TO MONITOR PRN.
[2019-08-18 02:31] VITALS: BP 136/82
--- NOTE | 2019-08-18 03:29 | NUR ---
ROUNDS MADE. MOM LYING SUPINE IN BED WITH INFANT UP IN ARMS BONDING. DENIES NEEDS AT THIS TIME. FOB LYING ON COUCH AT BEDSIDE.
--- NOTE | 2019-08-18 04:30 | NUR ---
PT SITTING UP IN BED WITH HOB 45 DEGREES. RATES PAIN 5/10, BUT TOLERABLE AT THIS TIME. REPORTS SHE FELT NAUSEATED WHEN LYING ON HER RIGHT SIDE, BUT FEELING SUBSIDED WHEN SHE REPOSITIONED. REPORTS SHE HAS NOT PASSED GAS, BUT STATES, "IT FEELS LIKE I NEED TO, BUT I HAVEN'T YET. I'VE DONE THIS BEFORE." DENIES NEEDS. WILL CONTINUE TO MONITOR.
--- NOTE | 2019-08-18 06:01 | NUR ---
PT MEDICATED AT 0555 WITH NORCO FOR PAIN LEVEL OF 9. L NERIS AUSTIN
[2019-08-18 07:09] VITALS: BP 109/58
--- NOTE | 2019-08-18 07:09 | NUR ---
SHIFT ASSESSMENT COMPLETED PER FLOWSHEET. VSS. FUNDUS FIRM, MIDLINE AND U2 WITH SCANT RUBRA LOCHIA. PT REPORTS THAT SHE IS PASSING FLATUS AND VOIDING S DIFFICULTY. C/O LOWER RLQ ABD DISCOMFORT 01/05, REPORTS "I FEEL LIKE IT IS GAS PAIN AGAIN AND AFTER EATING WILL GET UP TO WALK." REFUSES SHOWER AT THIS TIME. STATES THAT HER MOTHER WILL BE COMING LATER TODAY AND SHE WILL SHOWER AT THAT TIME. RT WRIST PIV REMOVED PER PT REQUEST, NO S/S OF INFILTRATION NOTED, TIP INTACT. BANDAID APPLIED. POC DISCUSSED WITH PT AND SIGNIFICANT OTHER, BOTH VERBALIZE UNDERSTANDING AND DENY QUESTIONS. BED IN LOW POSITION WITH SRUP X2. CALL LIGHT AND PHONE WITHIN REACH. QUESTIONS REGARDING ROOMING IN IF SHE IS D/C'D AND INFANT HAS TO STAY ANSWERED. WILL CONTINUE TO MONITOR.
--- NOTE | 2019-08-18 07:37 | NUR ---
DR. STEVENSON ON UNIT. DISCUSSED GETTING PT AND ABD BINDER FOR AMBULATION. ORDERS REC'D.
--- NOTE | 2019-08-18 08:05 | NUR ---
PAIN 2/, REPORTS THAT SHE PASSED FLATUS AND IT RELIEVED PAIN "A LOT." SOULEYMANE, GENERAL MACHINE OPERATOR AT BEDSIDE CURRENTLY DISCUSSING BF WITH PT. DENIES NEEDS. WILL CONTINUE TO MONITOR. BED IN LOW POSITION WITH SRUP X2. SIGNIFICANT OTHER RESTING ON COUCH AT BEDSIDE.
--- NOTE | 2019-08-18 08:17 | NUR ---
Kaitlin Lehman 08/18/2018 S: Patient states is going ok. has had low blood sugars. tends to sleep a lot when trying to feed. She will latch on one breast for 10 minutes then fall asleep. She will switch her to the other breast suck for a few minutes then fall back asleep. Infant tends to sleep a lot. has been given some formula and she is on an IV now. States she feels fine just tired. Her family and been very supportive with there wiliness to help. Denies questions or concerns at this time. O: Patient sitting up in bed eating breakfast, infant in nursery, father of infant sleeping on sofa. Praised for . Explained to patient to speak with nursery staff regarding infant low blood sugars and how it can impact infant . takes time, practice, and patience in the beginning. Since both mother and infant are learning how to feed together, this will take time and lots of practice for both mother and . Explained breastmilk composition, supply and demand, and the benefits of skin to skin to help promote led feedings. feeding pattern will vary per feeding and this is normal. Some infant will nurse longer then 15 minutes on one breast or a shorter time frame, this is normal feeding patterns and should be expected. Explained how positions and how to verify if infant is latched correctly to the breast. Provided tips on how to help stimulate to wake to feed. Encouraged to address all questions and concerns about feeding with nursery staff. With take things one feeding at a time. CLC will discuss with nursery staff plan for having patient to pump. A: Patient states infant has low blood sugars and sleeps often when at the breast. P: CLC will discuss with nursery nurse about patient pumping if infant doesn't latch to the breast for feeding. Patient should pump 15 minutes both breast every 2-3 hours in the day, 3-4 hours at night, or as able (if infant doesn't latch to the breast for feeding, if latches, no need to pump ). Pumping will help with establishing patient milk supply until is able to latch on a continues basses for every feeding. Kuldip Zuleta, JOSIAS
--- NOTE | 2019-08-18 09:33 | NUR ---
RESTING QUIETLY WITH EYES CLOSED, RESP REGULAR AND UNLABORED WITH NO S/S OF DISTRESS NOTED. SIGNIFICANT OTHER RESTING ON COUCH. PT NOT DISTURBED TO ALLOW FOR REST. IN NBN. BED IN LOW POSITION WITH SRUP X2. CALL LIGHT AND PHONE WITHIN REACH. WILL CONTINUE TO MONITOR.
--- NOTE | 2019-08-18 11:19 | NUR ---
LAYING ON RIGHT SIDE RESTING WITH EYES CLOSED. RESP REGULAR AND UNLABORED, NO S/S OF DISTRESS NOTED. SIGNIFICANT OTHER RESTING ON COUCH AT BEDSIDE. INFANT REMAINS IN NBN. PT NOT DISTURBED TO ALLOW FOR REST. BED IN LOW POSITION WITH SRUP X2. CALL LIGHT AND PHONE WITHIN REACH. WILL CONTINUE TO MONITOR.
[2019-08-18 12:26] VITALS: BP 117/71
--- NOTE | 2019-08-18 12:30 | NUR ---
VSS. FUNDUS FIRM, MIDLINE AND U2 WITH SMALL AMT RUBRA LOCHIA, NO CLOTS NOTED. LINENS CHANGED. ABD BINDER APPLIED AND PT INSTRUCTED ON USE AND TAKING IT OFF WHEN IN BED AND SITTING IN CHAIR RESTING, VERBALIZES UNDERSTANDING. UP TO SHOWER WITH HER MOTHER AT BEDSIDE. BED IN LOW POSITION WITH SRUP X2. CALL LIGHT AND PHONE WITHIN REACH. WILL CONTINUE TO MONITOR.
--- NOTE | 2019-08-18 14:02 | NUR ---
C/O CONSTANT HEADACHE 4-5/10, BACK ACHE 6-7/10, INCISIONAL BURNING/STINGING AND ABD CRAMPING /10. MOTRIN GIVEN PER ORDER AND PT REQUEST. NORCO OFFERED AND REFUSED AT THIS TIME. PT STATES THAT IF MOTRIN DOES NOT RELIEVE PAIN SHE WILL ASK RN FOR NORCO. INFANT IN ARMS. ICE WATER PROVIDED. DENIES ADDITIONAL NEEDS AT THIS TIME. BED IN LOW POSITION WITH SRUP X2. CALL LIGHT AND PHONE WITHIN REACH. CONVERSING WITH VISITORS. WILL CONTINUE TO MONITOR.
--- NOTE | 2019-08-18 15:11 | NUR ---
GETTING BACK IN BED FROM BR. REPORTS THAT SHE JUST WASHED HER HAIR AND PAIN REMAINS 03/07. NORCO GIVEN PER ORDER AND REQUEST. REPORTS THAT SHE SHOWERED EARILER BUT DID NOT HAVE PRODUCTS TO WASH HAIR. DISCHARGE QUESTIONS ANSWERED AND PT PROVIDED WITH WRITTEN PRESCRIPTIONS FOR FAMILY MEMBER TO TAKE TO BE FILLED D/T PT CONCERNS OF HAVING LATE D/C TIME AND HER PHARMACY BEING CLOSED. DENIES ADDITIONAL NEEDS. BED IN LOW POSITION WITH SRUP X2. CALL LIGHT AND PHONE WITHIN REACH. WILL CONTINUE TO MONITOR.
[2019-08-18 15:54] VITALS: BP 117/71
--- NOTE | 2019-08-18 15:54 | NUR ---
PAIN REASSESSMENT COMPLETED, 11/05. NOW C/O PRESSURE, SHARP, "SPASM" TO RIGHT SHOULDER. VSS. HR REGULAR RATE ADN RYHTHM. FUNDUS, FIRM, MIDLINE AND U2 WITH SCANT RUBRA LOCHIA, NO CLOTS. WARM BLANKETS PROVIDED AND PLACED ON RT SHOULDER. WILL CONTINUE TO MONITOR. REPORTS THAT SIGNIFICANT OTHER WENT TO RECEIVING SUPERVISOR PRESCRIPTIONS, REINFORCED TEACHING ON NOT TAKING OWN PRESCRIPTIONS WHILE RECEIVING MEDICATIONS WHILE ADMITED, VERBALIZES UNDERSTANDING. ICE WATER PROVIDED. DENIES ADDITIONAL NEEDS. PT'S MOTHER REMAINS AT BEDSIDE. BED IN LOW POSITION WITH SRUP X2. CALL LIGHT AND PHONE WITHIN REACH. WILL CONTINUE TO MONITOR.
--- NOTE | 2019-08-18 16:39 | NUR ---
REPORTS THAT WARM BLANKETS DID "HELP SOME" WITH RIGHT SHOULDER DISCOMFORT. CURRENTLY BOTTLE FEEDING WITH Mony WILSON RN AT BEDSIDE. DENIES NEEDS AT THIS TIME. WILL CONTINUE TO MONITOR AND ASSIST PRN. BED IN LOW POSITION WITH SRUP X2. CALL LIGHT AND PHONE WITHIN REACH. WILL CONTINUE TO MONITOR.
--- NOTE | 2019-08-18 18:21 | NUR ---
ROUNDS MADE. BONDING WITH . CONTINUES TO C/O ABD AND INCISIONAL PAIN 7-03/07. EXPRESSES CONCERNS THAT IF SHE IS D/C'D THIS AFTERNOON SHE HAS 3 FLIGHTS OF STAIRS TO GET UP AND IS CONCERNED THAT PAIN IS STILL INCREASED. REPORTS TO RN THAT ACCEPTABLE PAIN LEVEL IS 6/10. PT REQUESTING TO STAY OVERNIGHT AND ALSO EXPRESSES CONCERNS REGARDING EATING POORLY DURING LAST FEED. WILL REPORT CONCERNS TO DR. WARD.
--- NOTE | 2019-08-18 18:37 | NUR ---
REPORT TO DR. WARD REGARDING PT C/O PAIN AND CONCERNS ABOUT D/C'ING HOME TONIGHT. ORDER REC'D TO KEEP PT AND CHANGE MOTRIN ORDERS.
[2019-08-18 19:28] VITALS: BP 124/72
--- NOTE | 2019-08-18 19:28 | NUR ---
SITTING UP IN BED. SHIFT ASSESSMENT COMPLETED. MOTRIN 600 MG AND NORCO 10 MG GIVEN PO FOR RELIEF OF RIGHT INCISIONAL STABBING PAIN 02/04. DISCUSSED PAIN MANAGEMENT AND IMPORTANCE OF KEEPING IT IN CONTROL. ALSO DISCUSSED IMPORTANCE OF AMBULATING MORE THAN JUST IN THE ROOM. INFANT IN ARMS. VISITOR ON COUCH. PLAN AMBULATION IN APPROX 1 HOUR. VERBALIZED UNDERSTANDING.
--- NOTE | 2019-08-18 20:27 | NUR ---
AMBULATED ON PP CERON X 2 WITHOUT DIFFICULTY. SMILING TALKING. SAYS HER PAIN IS BETTER BUT STILL HURTING 5-6/10. SAYS 6 IS A LIVABLE PAIN NUMBER. NO DISTRESS NOTED. HAS BEEN PASSING FLATUS AND VOIDING WITHOUT DIFFICULTY. INFANT IN ROOM WITH GRANDMOTHER. ENCOURAGED TO CONTINUE AMBULATION, MUST BE IN CRIB IF AMBULATING IN [place] WITH . NO REQUESTS AT THIS TIME. SIDERAILS UP X 2, CALL LIGHT IN REACH. TO CALL IF ANYTHING IS NEEDED.
--- NOTE | 2019-08-18 21:13 | NUR ---
REQUESTED ASSISTANCE WITH PUMPING. ENCOURAGED TO SIT UP ON EDGE OF BED AND LEAN FORWARD TO PREVENT COLOSTRUM FROM FORMING IN FUNNEL. ALSO ENCOUARGE TO PUMP ONE BREAST AT A TIME FOR NOW UNTIL SHE BECOME PROFICIENT IN USING PUMP AND/OR BREASTMILK COMES IN. PT DEMONSTRATED APPROPRIATE USE OF PUMP. SIDE RAILS UP X 2, CALL LIGHT IN REACH. INFANT IN CRIB. VISITOR ON COUCH.
--- NOTE | 2019-08-18 21:47 | NUR ---
AMBULATING IN [place]. TOLERATING WELL. WALKING WITH MOTHER. INFANT IN NURSERY. NOT CURRENTLY WEARING ABD BINDER BUT SAYS SHE IS DOING OK. WALKED FROM 1257 AROUND PP, TO L&D AND BACK TO ROOM.
--- NOTE | 2019-08-18 22:49 | NUR ---
SITTING UP IN BED EATING CHIPS AND DRINKING SODA. IN CRIB. ASKED WHAT TO DO IF WILL NOT WAKE UP TO EAT. DISCUSSED METHODS TO USE. CONTACTED NURSERY RN AND ASKED HOW OFTEN FEEDINGS ARE EXPECTED, Q 3 HOURS. DUE TO EAT NOW. 5-6/10 INCISIONAL SHARPNESS, SAYS IT'S ABOUT THE SAME EARLIER. DOING OK WITH IT. DISCUSSED PAIN MANAGEMENT AND WHEN NEXT MEDICATIONS CAN BE GIVEN AND WHEN MOTRIN WILL BE DUE. SAYS "IT FEELS LIKE IT'S RUMBLING" POINTING TO ABDOMEN. DISCUSSED RELIEF MEASURES FOR GAS. SHE WILL TRY LLD WITH RIGHT LEG PULLED UP. ALSO RECOMMEND INCREASE WATER INTAKE VS TOO MANY SODA'S. VERBALIZED UNDERSTANDING. SIDE RAILS UP X 2. CALL LIGHT IN REACH.
[2019-08-18 22:53] VITALS: BP 131/75
--- NOTE | 2019-08-19 01:50 | NUR ---
THIS RN TO BEDSIDE FOR ROUNDING AND MOTRIN ADMIN. PT CURRENTLY SITTING UP IN BED W/BABY UP IN ARMS FOR FEEDING. PAIN ASSESSED. PT REPORTS PAIN 02/04. DESCRIBES IT STABBING PAIN TO THE RT SIDE OF INCISION AND A FRONTAL HEADACHE. MOTRIN 600MG PO GIVEN. PT HAS SEVERAL DRINKS AT BEDSIDE. DENIES NEEDS AT THIS TIME. BED LOW, SIDE RAILS UP X 2. CALL LIGHT AT PT'S SIDE.
--- NOTE | 2019-08-19 03:00 | NUR ---
ROUNDS MADE FOR PAIN REASSESMENT. PT LYING AWAKE IN BED. REPORTS PAIN IS BETTER. RATES IT 5/10. DENIES NEEDS AT THISTIME.
[2019-08-19 03:07] LABS: RAPID PLASMA REAGIN Reactive (Non Reactive); TREPONEMA PALLIDUM AB Non Reactive (Non Reactive)
--- NOTE | 2019-08-19 05:00 | NUR ---
ROUNDS MADE. PT CURRENTLY SITTING UP IN CHAIR W/BABY UP IN ARMS FOR FEEDING. PAIN ASSESSED AND NORCO OFFERED. PT REPORTS PAIN 8/10 AFTER GETTING OUT OF CHAIR. 1 NORCO 10/325MG PO GIVEN. PT DENIES NEEDS AT THIS TIME.
--- NOTE | 2019-08-19 05:30 | NUR ---
ROUNDS MADE FOR PAIN REASSESSMENT. PT SITTING UP IN BED W/BABY UP IN ARMS. PT NOW REPORTS PAIN 6/10 WHICH IS WHAT PT HAS REPORTED IS A TOLERABLE PAIN LEVEL. PT DENIES NEEDS AT THIS TIME.
--- NOTE | 2019-08-19 07:45 | NUR ---
ASSESSMENT COMPLETED. SEE FLOWSHEET. PT MOTHER AT BEDSIDE. IN MOM'S ARMS. PT. AWAKE, ALERT. STATES IS VOIDING WITHOUT DIFFICULTY AND PASSING GAS. FUNDUS FIRM 2 BELOW THE UMBILICUS. ROUTINE MOTRIN GIVEN FOR PAIN CONTROL. NO OTHER COMPLAINTS OR NEEDS AT THIS TIME.
[2019-08-19 07:57] VITALS: BP 119/50
[2019-08-19] MEDS ORDERED: HYDROCODON-ACE1 EA10 PO (10:46)
[2019-08-19] MEDS ORDERED: IBUPROFEN600 MG PO (10:47)
--- NOTE | 2019-08-19 11:20 | NUR ---
REVIEWED DISCHARGE INSTRUCTIONS WITH PATIENT. STATES UNDERSTANDING. PRESCRIPTION GIVEN. APPOINTMENT TIME REVEIWED--AUGUST 27, 2019 @ [address] STEVENSON.
--- NOTE | 2019-08-19 12:04 | NUR ---
PT DISCHARGED HOME VIA WHEELCHAIR TO PRIVATE VEHICLE ACCOMPANIED BY HOSPITAL PERSONNEL.
== END 2019-08-19 12:00 | disposition home or self-care (01) | DRG 788 ==
LOC: D.LDO 09:21 → D.LD 21:34 → D.LDO 08-16 13:32 → D.WS 08-16 13:33 → D.LD 08-16 13:33 → D.WS 08-16 20:36 → D.LD 08-17 15:35
PROVIDERS: ADMIT Obstetrics & Gynecology; ATTEND Obstetrics & Gynecology
PROC: 10D00Z1 Extraction of Products of Conception, Low, Open Approach (ICD-10-PCS; principal; 2019-08-16 19:00)
DX: O14.94 Unspecified pre-eclampsia, complicating childbirth (principal); Z3A.37 37 weeks gestation of pregnancy; Z37.0 Single live birth; O99.824 Streptococcus B carrier state complicating childbirth; M32.9 Systemic lupus erythematosus, unspecified; O75.89 Other specified complications of labor and delivery; R00.0 Tachycardia, unspecified; O36.8330 Maternal care for abnormalities of the fetal heart rate or rhythm, third trimester, not applicable or unspecified; Z87.891 Personal history of nicotine dependence

== ENCOUNTER 2019-10-12 14:06 | Emergency (ER) | payer MEDICAID ==
[~2019-10-12] VITALS: Ht 162.6 cm; Wt 81.8 kg
[~2019-10-12 14:06] MED LIST changes: +BUTALB-APAP-CA1 EACH PO; +CYCLOBENZAPRINE5 MG PO; +HYDROCODON-ACE1 EA10 PO; +IBUPROFEN600 MG PO; +PRENAVITE1 TAB PO; +ZOFRAN4 MG PO
[2019-10-12 14:13] VITALS: Ht 162.6 cm; Wt 81.8 kg
[2019-10-12] MEDS ORDERED: [UNRECOGNIZED DRUG - OTHER] (14:14)
[2019-10-12] MEDS ORDERED: ZOLOFT25 MG PO (14:14)
[2019-10-12 14:36] LABS: BASOPHILS 0.2 % (0-2); EOSINOPHILS 2.5 % (0-7); HEMATOCRIT 39.8 % (36.0-48.0); HEMOGLOBIN 12.2 g/dL (12-16); IMMATURE GRANULOCYTES 0.2 % (0-5); LYMPHOCYTES 33.2 % (15-50); MCH 24.4 pg (26.0-34.0); MCHC 30.7 g/dL (31.0-37.0); MCV 79.4 fL (80.0-100.0); MEAN PLATELET VOLUME 10.5 fL (7.4-10.4); MONOCYTES 6.7 % (2-11); NEUTROPHILS 57.2 % (40-80); RBC 5.01 10x6/uL (4.00-5.40); RDW 17.1 % (11.5-14.5); WBC 5.6 10x3/uL (4.8-10.8)
[2019-10-12 14:42] LABS: PLATELET COUNT 208 10x3/uL (130-400)
[2019-10-12 14:52] LABS: CALC OSMOLALITY 278 mosm/kg (275-300); CALCIUM 9.4 mg/dL (8.5-10.1); CARBON DIOXIDE 24.9 mmol/L (21.0-32.0); CHLORIDE - SERUM 105 mmol/L (98-107); CREATININE - SERUM 0.9 mg/dL (0.6-1.3); GLUCOSE 85 mg/dL (74-106); SODIUM 140 mmol/L (136-145); UREA NITROGEN 14 mg/dL (7-18); eGFR NON AFRICAN AMERICAN 83 mL/min (90-120)
[2019-10-12 14:53] LABS: UDS - AMPHET NEGATIVE QUAL (NEGATIVE); UDS - BARB NEGATIVE QUAL (NEGATIVE); UDS - BENZO NEGATIVE QUAL (NEGATIVE); UDS - COCAINE NEGATIVE QUAL (NEGATIVE); UDS - OPIATE NEGATIVE QUAL (NEGATIVE); UDS - PCP NEGATIVE QUAL (NEGATIVE); UDS - THC POSITIVE QUAL (NEGATIVE)
[2019-10-12 14:58] LABS: ALBUMIN 4.1 g/dL (3.4-5.0); ALKALINE PHOSPHATASE 141 U/L (30-120); ALT (SGPT) 21 U/L (10-68); BILIRUBIN - TOTAL 0.27 mg/dL (0.2-1.3)
--- NOTE | 2019-10-12 14:59 | NUR ---
According to the suicide risk assessment the patient score is high and she will need a 1:1 observation. Will provide a safety plan and a suicide resource flyer.
[2019-10-12 15:05] LABS: BILIRUBIN NEGATIVE (NEGATIVE); GLUCOSE NEGATIVE (NEGATIVE); KETONE NEGATIVE (NEGATIVE); NITRITE NEGATIVE (NEGATIVE); UROBILINOGEN NORMAL (NORMAL)
[2019-10-12 15:07] LABS: BACTERIA FEW /hpf (NEGATIVE); EPITHELIAL CELLS 0-5 /hpf (0-5); RED CELLS - URINE OCC /hpf (0-5); WHITE CELLS - URINE 0-5 /hpf (NEGATIVE)
[2019-10-12 16:25] VITALS: BP 114/78
== END 2019-10-12 16:37 | disposition home or self-care (01) ==
LOC: D.ER 14:06
PROVIDERS: Family Medicine
DX: R45.851 Suicidal ideations (principal); F32.9 Major depressive disorder, single episode, unspecified